=== PATIENT | female | born 1945 | race Caucasian/White ===

== ENCOUNTER 2019-08-09 21:53 | Inpatient (IN) | payer SELFPAY ==
[~2019-08-09] VITALS: Ht 157.5 cm; Wt 74.4 kg
[2019-08-09] MEDS ORDERED: METHYLPREDNISOLONE SOD SUCC 125 MG/2 ML VIAL IV STA (22:20)
[2019-08-09 23:11] LABS: CHLORIDE 112 mEq/L (98-107)
[2019-08-09 23:12] LABS: BASOPHILS % 0.7 % (0.0-2.0); EOSINOPHILS % 1.7 % (0.0-5.0); HEMATOCRIT. 28.6 % (36.0-48.0); HEMOGLOBIN. 9.6 g/dL (12.0-16.0); LYMPHOCYTES % 12.8 % (20.0-50.0); MEAN CORPUSCULAR HEMOGLOBIN 32.1 pg (28.0-32.0); MEAN CORPUSCULAR VOLUME 96.1 fL (81.0-99.0); MEAN PLATELET VOLUME 8.9 fl (7.4-10.4); MONOCYTES % 9.8 % (2.0-8.0); PLATELET 174 x1000/uL (130-400); RED BLOOD CELL COUNT 2.98 mill/uL (4.2-5.4); RED CELL DISTRIBUTION WIDTH 13.1 % (11.6-14.6)
[2019-08-09] MEDS ORDERED: FUROSEMIDE 40MG/4ML VIAL IVP ONE (23:45)
[2019-08-09] MEDS: NITROGLYCERIN 0.4MG TABLET SL SL PRN ×2 (23:46→23:53)
[2019-08-10] MEDS ORDERED: DEXTROSE 50% WATER 50ML SYRINGE IV PRN (10:45)
[2019-08-10] MEDS ORDERED: ONDANSETRON HCL 4MG/2ML INJ IV PRN (10:45)
[2019-08-10] MEDS ORDERED: ACETAMINOPHEN 325MG TABLET PO PRN (10:45)
[2019-08-10] MEDS: FUROSEMIDE 40MG/4ML VIAL IVP SCH (11:29)
[2019-08-10] MEDS: INSULIN LISPRO 100 UNITS/ML SUBCUT SCH ×2 (11:30→22:13)
[2019-08-10] MEDS ORDERED: CLONIDINE 0.1MG TABLET PO PRN (14:15)
[2019-08-10 17:27] VITALS: BP 142/68
[2019-08-10] MEDS: BLOOD SUGAR DIAGNOSTIC STRIP TEST SCH ×2 (17:40→21:38)
[2019-08-10 20:00] VITALS: BP 168/72
[2019-08-10] MEDS: HYDRALAZINE HCL 50MG TABLET PO SCH (21:37)
[2019-08-10] MEDS: AMLODIPINE 5MG TABLET PO SCH (21:37)
[2019-08-10] MEDS ORDERED: INSULIN GLARGINE UD 100 UNITS/ML SYR SUBCUT SCH (22:00)
[2019-08-10] MEDS ORDERED: INSULIN LISPRO 100 UNITS/ML SUBCUT NR (22:30)
[2019-08-11] VITALS: BP 142/62
[2019-08-11] MEDS: INSULIN GLARGINE UD 100 UNITS/ML SYR SUBCUT SCH ×3 (00:21→22:15)
[2019-08-11 04:00] VITALS: BP 119/77
[2019-08-11 07:29] LABS: HEMATOCRIT. 27.9 % (36.0-48.0); HEMOGLOBIN. 9.4 g/dL (12.0-16.0); MEAN CORPUSCULAR HEMOGLOBIN 31.8 pg (28.0-32.0); MEAN CORPUSCULAR VOLUME 94.8 fL (81.0-99.0); MEAN PLATELET VOLUME 9.5 fl (7.4-10.4); PLATELET 172 x1000/uL (130-400); RED BLOOD CELL COUNT 2.94 mill/uL (4.2-5.4)
[2019-08-11] MEDS: BLOOD SUGAR DIAGNOSTIC STRIP TEST SCH ×4 (07:40→21:45)
[2019-08-11 08:00] VITALS: BP 127/65
[2019-08-11] MEDS: INSULIN LISPRO 100 UNITS/ML SUBCUT SCH ×7 (09:12→21:00)
[2019-08-11] MEDS: AMLODIPINE 5MG TABLET PO SCH ×2 (09:14→21:45)
[2019-08-11] MEDS: HYDRALAZINE HCL 50MG TABLET PO SCH ×2 (09:14→21:44)
[2019-08-11] MEDS: FUROSEMIDE 40MG/4ML VIAL IVP SCH (10:01)
[2019-08-11 12:00] VITALS: BP 118/59
[2019-08-11 16:00] VITALS: BP 125/60
[2019-08-11 18:27] LABS: PLATELET ESTIMATE NORMAL
[2019-08-11 20:00] VITALS: BP 118/55
[2019-08-11 23:21] LABS: CLARITY URINE CLEAR (CLEAR); COLOR URINE YELLOW (YELLOW); KETONES URINE NEGATIVE (NEGATIVE); LEUKOCYTE ESTERASE URINE NEGATIVE (NEGATIVE); NITRITE URINE NEGATIVE (NEGATIVE); OCCULT BLOOD URINE NEGATIVE (NEGATIVE); PROTEIN URINE 1+ (NEGATIVE); SPECIFIC GRAVITY URINE 1.009 (1.005-1.030); UROBILINOGEN URINE 0.2 E.U./dL (0.2-1.0)
[2019-08-12] VITALS: BP 106/57
[2019-08-12 04:00] VITALS: BP 119/53
[2019-08-12] MEDS: BLOOD SUGAR DIAGNOSTIC STRIP TEST SCH ×4 (07:40→21:19)
[2019-08-12] MEDS: INSULIN LISPRO 100 UNITS/ML SUBCUT SCH ×7 (07:49→21:00)
[2019-08-12 08:00] VITALS: BP 125/56
[2019-08-12 08:40] LABS: BASOPHILS % 0.5 % (0.0-2.0); EOSINOPHILS % 1.8 % (0.0-5.0); HEMATOCRIT. 29.4 % (36.0-48.0); HEMOGLOBIN. 10.3 g/dL (12.0-16.0); MEAN CORPUSCULAR HEMOGLOBIN 33.1 pg (28.0-32.0); MEAN CORPUSCULAR VOLUME 94.9 fL (81.0-99.0); MEAN PLATELET VOLUME 9.3 fl (7.4-10.4); MONOCYTES % 9.7 % (2.0-8.0); PLATELET 196 x1000/uL (130-400); RED CELL DISTRIBUTION WIDTH 12.9 % (11.6-14.6)
[2019-08-12] MEDS: AMLODIPINE 5MG TABLET PO SCH ×2 (08:52→21:24)
[2019-08-12] MEDS: HYDRALAZINE HCL 50MG TABLET PO SCH ×2 (08:52→21:24)
[2019-08-12 10:44] LABS: PHOSPHORUS 4.9 mg/dL (2.5-4.9)
[2019-08-12 12:00] VITALS: BP 118/64
[2019-08-12] MEDS: FUROSEMIDE 40MG/4ML VIAL IVP SCH (12:03)
[2019-08-12] MEDS: INSULIN GLARGINE UD 100 UNITS/ML SYR SUBCUT SCH ×2 (12:05→21:25)
[2019-08-12 16:00] VITALS: BP 144/63
[2019-08-12] MEDS: AZITHROMYCIN 500 MG in DEXT 5% WATER 250 ML IV SCH (16:54)
[2019-08-12 20:00] VITALS: BP 127/53
[2019-08-13] VITALS: BP 122/67
[2019-08-13 04:00] VITALS: BP 128/57
[2019-08-13] MEDS: BLOOD SUGAR DIAGNOSTIC STRIP TEST SCH ×4 (05:54→21:02)
[2019-08-13 07:33] LABS: BASOPHILS % 0.6 % (0.0-2.0); EOSINOPHILS % 5.6 % (0.0-5.0); HEMATOCRIT. 29.1 % (36.0-48.0); HEMOGLOBIN. 9.8 g/dL (12.0-16.0); MEAN CORPUSCULAR HEMOGLOBIN 31.5 pg (28.0-32.0); MEAN CORPUSCULAR VOLUME 94.2 fL (81.0-99.0); MEAN PLATELET VOLUME 9.1 fl (7.4-10.4); MONOCYTES % 11.3 % (2.0-8.0); NEUTROPHILS % 46.5 % (40.0-76.0); PLATELET 218 x1000/uL (130-400); RED BLOOD CELL COUNT 3.09 mill/uL (4.2-5.4); RED CELL DISTRIBUTION WIDTH 13.2 % (11.6-14.6)
[2019-08-13 08:00] VITALS: BP 136/61
[2019-08-13] MEDS: INSULIN LISPRO 100 UNITS/ML SUBCUT SCH ×7 (08:10→21:00)
[2019-08-13] MEDS: AMLODIPINE 5MG TABLET PO SCH ×2 (08:59→21:02)
[2019-08-13] MEDS: HYDRALAZINE HCL 50MG TABLET PO SCH ×2 (08:59→21:01)
[2019-08-13] MEDS: AZITHROMYCIN 500 MG in DEXT 5% WATER 250 ML IV SCH (09:00)
[2019-08-13 09:06] LABS: PHOSPHORUS 5.1 mg/dL (2.5-4.9)
[2019-08-13] MEDS: INSULIN GLARGINE UD 100 UNITS/ML SYR SUBCUT SCH ×2 (10:21→21:12)
[2019-08-13 12:00] VITALS: BP 113/40
[2019-08-13 16:00] VITALS: BP 120/56
[2019-08-13 20:00] VITALS: BP 139/70
[2019-08-14] VITALS: BP_SYST 133; BP_SYST 138; BP_SYST 162; BP_DIAS 39; BP_DIAS 49; BP_DIAS 55
[2019-08-14 04:00] VITALS: BP 112/33
[2019-08-14] MEDS: BLOOD SUGAR DIAGNOSTIC STRIP TEST SCH ×2 (06:23→12:40)
[2019-08-14] MEDS: INSULIN LISPRO 100 UNITS/ML SUBCUT SCH ×4 (07:40→13:10)
[2019-08-14 07:54] LABS: BASOPHILS % 0.4 % (0.0-2.0); EOSINOPHILS % 6.1 % (0.0-5.0); HEMATOCRIT. 28.3 % (36.0-48.0); HEMOGLOBIN. 9.5 g/dL (12.0-16.0); LYMPHOCYTES % 29.3 % (20.0-50.0); MEAN CORPUSCULAR HEMOGLOBIN 31.8 pg (28.0-32.0); MEAN CORPUSCULAR VOLUME 94.6 fL (81.0-99.0); MEAN PLATELET VOLUME 8.7 fl (7.4-10.4); MONOCYTES % 11.2 % (2.0-8.0); PLATELET 213 x1000/uL (130-400)
[2019-08-14 08:00] VITALS: BP 119/58
[2019-08-14 08:21] LABS: PHOSPHORUS 4.4 mg/dL (2.5-4.9)
[2019-08-14] MEDS: HYDRALAZINE HCL 50MG TABLET PO SCH (08:51)
[2019-08-14] MEDS: AZITHROMYCIN 500 MG in DEXT 5% WATER 250 ML IV SCH (08:52)
[2019-08-14] MEDS: AMLODIPINE 5MG TABLET PO SCH (08:52)
[2019-08-14] MEDS: INSULIN GLARGINE UD 100 UNITS/ML SYR SUBCUT SCH (11:54)
[2019-08-14 12:00] VITALS: BP 133/59
[2019-08-14] MEDS ORDERED: AZIT250T12 PO (12:51)
[2019-08-14 15:25] VITALS: BP 119/58
== END 2019-08-14 17:15 | disposition home or self-care (01) | DRG 133 ==
LOC: ER 21:53 → 7WST 08-10 00:23 → ENRESERV 08-10 14:58
PROVIDERS: ADMIT Internal Medicine; ATTEND Internal Medicine
DX: J96.01 Acute respiratory failure with hypoxia (principal); N17.0 Acute kidney failure with tubular necrosis; I50.41 Acute combined systolic (congestive) and diastolic (congestive) heart failure; E44.0 Moderate protein-calorie malnutrition; J18.9 Pneumonia, unspecified organism; E87.8 Other disorders of electrolyte and fluid balance, not elsewhere classified; I13.0 Hypertensive heart and chronic kidney disease with heart failure and stage 1 through stage 4 chronic kidney disease, or unspecified chronic kidney disease; E11.22 Type 2 diabetes mellitus with diabetic chronic kidney disease; I27.20 Pulmonary hypertension, unspecified; N18.2 Chronic kidney disease, stage 2 (mild); D64.9 Anemia, unspecified; R07.89 Other chest pain; M19.90 Unspecified osteoarthritis, unspecified site; I16.0 Hypertensive urgency; Z68.30 Body mass index [BMI] 30.0-30.9, adult; Z82.49 Family history of ischemic heart disease and other diseases of the circulatory system; Z83.3 Family history of diabetes mellitus; Z98.891 History of uterine scar from previous surgery
CPT/HCPCS: 36415; 71045; 71250; 76770; 80048; 81003; 82550; 82962; 83735; 83880; 84100; 84145; 84484; 93005; 93306; 93970; 99285; J0456; J1815; J1940; J2930; J7060